=== PATIENT | female | born 1975 | race Caucasian/White ===

== ENCOUNTER 2017-01-12 10:07 | Emergency (ER) | payer MEDICAID ==
[~2017-01-12] VITALS: Ht 157.5 cm; Wt 65.5 kg
[2017-01-12 10:10] VITALS: Ht 157.5 cm; Wt 65.5 kg
[2017-01-12] MEDS ORDERED: IBUPROFEN 600 MG TAB PO ONE (12:00)
--- NOTE | 2017-01-12 12:41 | RADRPT ---
PROCEDURE: Right hand series CLINICAL INDICATION: Right hand and wrist pain TECHNIQUE: Three views of the right hand were obtained. COMPARISON: No prior studies are available for comparison. FINDINGS: There is normal mineralization and alignment of the bones of the right hand. There is no evidence o f acute fracture or dislocation. Joint spaces are well maintained. There is no evidence of osteoph yte formation or erosions. The soft tissues are within normal limits. IMPRESSION: 1. Unremarkable right hand series. RPTAT: KK .Jorge Bishop MD, MD Date Time Electronically viewed and signed by .Jorge Bishop MD, MD on 01/12/2017 12:40 .B/
--- NOTE | 2017-01-12 12:43 | RADRPT ---
PROCEDURE: XR Wrist. CLINICAL INDICATION: Right wrist pain TECHNIQUE: 4 views of the right wrist were performed. COMPARISON: No prior studies are available for comparison. FINDINGS: There is normal mineralization and alignment of the bones of the right wrist . there is a subtle li near hyperdensity just posterior to the mid carpal bones typically seen in a triquetral fracture. Th ere is no other evidence of acute fracture or dislocation. Joint spaces are well maintained. No ero sions or osteophytes are seen. The soft tissues are within normal limits. IMPRESSION: 1. Subtle linear hyperdensity just dorsal to the carpal bones typically seen in a triquetral fractu re. Given the subtlety of the finding, it may be artifactual, and can be confirmed with CT if clini aron indicated. Recommend correlation with point tenderness. 2. Otherwise unremarkable right wrist series. RPTAT: KK .Jorge Bishop MD, MD Date Time Electronically viewed and signed by .Jorge Bishop MD, on 01/12/2017 12:43 .B/
--- NOTE | 2017-01-12 14:19 | RADRPT ---
AMENDMENT: 01/12/2017 2:25:07 PM Canelo Mendez Md It is now realized that a right wrist study was already performed. Although no definite fracture of the distal radius is noted, the appearance on the forearm study is such that a fracture is not compl etely excluded, if there has been trauma to this region. If indicated, a CT study of the right wrist is suggested. PROCEDURE: Right forearm series CLINICAL INDICATION: Atraumatic pain. TECHNIQUE: 2 views. AP and lateral. COMPARISON: None FINDINGS: There is mild nonspecific slight bowing of the lateral cortex of the distal humerus. This may be conrado tomic. Old trauma is not excluded. There is no history of acute trauma. The ulna is unremarkable. The soft tissues are unremarkable. IMPRESSION: 1. Nonspecific mild bowing of the lateral cortex of the distal humerus as discussed above. Correlat ion suggested. Right wrist series could be obtained for further evaluation if clinically indicated. RPTAT: HGSG .Canelo Mendez MD, MD Date Time Electronically viewed and signed by .Canelo Mendez MD, on 01/12/2017 14:26 .G/
[2017-01-12] MEDS ORDERED: IBUP-1542 PO (15:08)
--- NOTE | 2017-01-12 15:21 | ERD ---
ER Documentation Chief Complaint Date/Time DATE: 01/12/17 TIME: 15:11 Chief Complaint RIGHT WRIST PAIN FROM A SLIPPED AND FALL HPI Patient is a 41-year-old female with no past medical history who presents emergency department for concerns of right wrist pain after slip and fall injury 2 days ago. Patient states she is walking the street when she fell. Patient reports catching her fall with her wrists. Patient reports FOOSH like injury. Patient denies any previous fractures. Patient denies any numbness, tingling. Patient denies any elbow pain or shoulder pain. Patient denies any fevers or chills. Patient is right-hand dominant. Patient denies any head injury, nausea, vomiting or LOC. ROS All systems reviewed and are negative except as per history of present illness. Medications Home Meds Active Scripts Ibuprofen* (Motrin*) 600 Mg Tab, 600 MG PO Q6, #30 TAB Prov:JAMIR SOMMER PA-C 01/12/17 Allergies Allergies: Coded Allergies: No Known Allergy (Unverified , 01/12/17) PMhx/Soc Medical and Surgical Hx: pt denies Medical Hx, pt denies Surgical Hx Hx Alcohol Use: No Hx Substance Use: No Hx Tobacco Use: No Smoking Status: Never smoker Physical Exam Vitals Vital Signs Date Time Temp Pulse Resp B/P Pulse Ox O2 Delivery O2 Flow Rate FiO2 01/12/17 10:10 98.5 73 18 118/70 98 Physical Exam GENERAL: Well-developed, well-nourished female. Appears in no acute distress. HEAD: Normocephalic, atraumatic. EYES: Pupils are equally reactive bilaterally. EOMs grossly intact. No conjunctival erythema. ENT: Moist mucous membranes. No uvula deviation. No kissing tonsils. NECK: Supple. No meningismus. Normal range of motion of the neck. LUNG: Clear to auscultation bilaterally. No rhonchi, wheezing, rales or coarse breath sounds. HEART: Regular rate and rhythm. No murmurs, rubs or gallops. EXTREMITIES: Equal pulses bilaterally. No peripheral clubbing, cyanosis or edema. No unilateral leg swelling. NEUROLOGIC: Alert and oriented. Moving all four extremities without any difficulty. Normal speech. Steady gait. SKIN: Normal color. Warm and dry. No rashes or lesions. RIGHT HAND: No obvious deformity, erythema, ecchymosis or swelling. Tender to patient of the distal forearm. Tender patient over the snuffbox. Nontender palpation of the proximal forearm, elbow, humerus, clavicle. Sensation intact to light touch. Neurovascularly intact. (Able to give thumbs up, make an ok sign , cross digits 2 and 3, thumb to pinky opposition. 2+ RP.) Results 24 hrs Current Medications Medications (Trade) Dose Ordered Sig/Keven Route PRN Reason Start Time Stop Time Status Last Admin Dose Admin Ibuprofen (Motrin) 600 mg ONCE ONCE PO 01/12/17 12:00 01/12/17 12:01 DC 01/12/17 11:39 Procedures/MDM ED COURSE: The patient was stable throughout ED course. I kept the patient and/or family informed of laboratory and diagnostic imaging results throughout the ED course. DIAGNOSTIC IMAGING: Read by radiologist. DIAGNOSTIC IMAGING REPORT Patient: SIMONA CHEN : 1975 Age: 41 Sex: F MR #: [id number] DOS: 01/12/17 1133 Ordering MD: JAMIR SOMMER PA-C Location: [facility] Room/Bed: PROCEDURE: XR Wrist. CLINICAL INDICATION: Right wrist pain TECHNIQUE: 4 views of the right wrist were performed. COMPARISON: No prior studies are available for comparison. FINDINGS: There is normal mineralization and alignment of the bones of the right wrist . there is a subtle linear hyperdensity just posterior to the mid carpal bones typically seen in a triquetral fracture. There is no other evidence of acute fracture or dislocation. Joint spaces are well maintained. No erosions or osteophytes are seen. The soft tissues are within normal limits. IMPRESSION: 1. Subtle linear hyperdensity just dorsal to the carpal bones typically seen in a triquetral fracture. Given the subtlety of the finding, it may be artifactual, and can be confirmed with CT if clinically indicated. Recommend correlation with point tenderness. 2. Otherwise unremarkable right wrist series. RPTAT: KK .Jorge Bishop MD, Date Time Electronically viewed and signed by .Jorge Bishop MD, MD on 2016 12:43 .B/ CC: JAMIR SOMMER PA-C Patient: SIMONA CHEN : 1975 Age: 41 Sex: F MR #: [id number] DOS: 01/12/17 1133 Ordering MD: JAMIR SOMMER PA-C Location: [facility] Room/Bed: PROCEDURE: Right hand series CLINICAL INDICATION: Right hand and wrist pain TECHNIQUE: Three views of the right hand were obtained. COMPARISON: No prior studies are available for comparison. FINDINGS: There is normal mineralization and alignment of the bones of the right hand. There is no evidence of acute fracture or dislocation. Joint spaces are well maintained. There is no evidence of osteophyte formation or erosions. The soft tissues are within normal limits. IMPRESSION: 1. Unremarkable right hand series. RPTAT: KK .Jorge Bishop MD, MD Date Time Electronically viewed and signed by .Jorge Bishop MD, MD on 2016 12:40 .B/ CC: JAMIR SOMMER PA-C Patient: SIMONA CHEN : 1975 Age: 41 Sex: F MR #: [id number] DOS: 01/12/17 1301 Ordering MD: JAMIR SOMMER PA-C Location: [facility] Room/Bed: AMENDMENT: 01/12/2017 2:25:07 PM Canelo Mendez Md It is now realized that a right wrist study was already performed. Although no definite fracture of the distal radius is noted, the appearance on the forearm study is such that a fracture is not completely excluded, if there has been trauma to this region. If indicated, a CT study of the right wrist is suggested. PROCEDURE: Right forearm series CLINICAL INDICATION: Atraumatic pain. TECHNIQUE: 2 views. AP and lateral. COMPARISON: None FINDINGS: There is mild nonspecific slight bowing of the lateral cortex of the distal humerus. This may be anatomic. Old trauma is not excluded. There is no history of acute trauma. The ulna is unremarkable. The soft tissues are unremarkable. IMPRESSION: 1. Nonspecific mild bowing of the lateral cortex of the distal humerus as discussed above. Correlation suggested. Right wrist series could be obtained for further evaluation if clinically indicated. RPTAT: HGSG .Canelo Mendez MD, MD Date Time Electronically viewed and signed by .Canelo Mendez MD, MD on 01/12/2017 14: 26 .G/ CC: JAMIR SOMMER PA-C SPLINT APPLICATION: The patient was verbally consented at bedside prior to splint application. Patient was explained the risks, benefits and alternatives to this procedure. The patient was neurovascularly intact prior to and status post application of the splint. The patient tolerated the procedure well with no complications. Splint type: volar splint and thumb spica splint Extremity: right arm Indication:possible triquetral fracture, scaphoid fracture MEDICATIONS GIVEN: Ibuprofen Patient tolerated medication well with no adverse reactions. Patient reported improvement in pain. MEDICAL DECISION MAKING: This is a 41-year-old female who presents with right wrist pain after a slip and fall injury 2 days ago. Vital signs were reviewed. Patient was afebrile. X -ray imaging of the right wrist showed 1. Subtle linear hyperdensity just dorsal to the carpal bones typically seen in a triquetral fracture. Given the subtlety of the finding, it may be artifactual, and can be confirmed with CT if clinically indicated. Recommend correlation with point tenderness. 2. Otherwise unremarkable right wrist series. Right hand series was unremarkable. Right forearm series showed Nonspecific mild bowing of the lateral cortex of the distal humerus as discussed above. Correlation suggested. Right wrist series could be obtained for further evaluation if clinically indicated. Given that patient did report tenderness to palpation over the snuffbox. Patient was placed in a thumb spica as well as a volar splint. Patient was advised that she will need to follow-up with electronic warfare specialist for further management of her fracture. Copy of all imaging studies obtained today were given to the patient. Patient was also placed in a sling for comfort measures. Given these findings, the patient's presentation was consistent with possible triquetral fracture and scaphoid fracture. Low suspicion for dislocation, metacarpal fracture, phalanx fracture, boxer's fracture, boutonnieres deformity, mallet finger, elbow fracture, avulsion injury, osteomyelitis or compartment syndrome. PRESCRIPTIONS: Ibuprofen DISCHARGE: At this time, patient is stable for discharge and outpatient management. Patient was advised to follow up with electronic warfare specialist, referral information provided. I have instructed the patient to follow-up with his/her primary care physician in 1-2 days. I have discussed with the patient the possibility of needing to see an electronic warfare specialist for further workup and imaging if the pain persists. I have instructed the patient to promptly return to the ER for any new or worsening symptoms including increased pain, swelling, redness, warmth or fever. The patient and/or family expressed understanding of and agreement with this plan. All questions were answered. Home care instructions were provided. Departure Diagnosis: Primary Impression: Triquetral fracture Encounter type: initial encounter Fracture type: closed Fracture alignment : nondisplaced Laterality: unspecified laterality Qualified Code: S62.116A - Closed nondisplaced fracture of triquetrum, unspecified laterality, initial encounter Additional Impression: Pain of right arm Condition: Stable Patient Instructions: Fracture, Wrist [General] Referrals: [facility] YOU HAVE RECEIVED A MEDICAL SCREENING EXAM AND THE RESULTS INDICATE THAT YOU DO NOT HAVE A CONDITION THAT REQUIRES URGENT TREATMENT IN THE EMERGENCY DEPARTMENT. FURTHER EVALUATION AND TREATMENT OF YOUR CONDITION CAN WAIT UNTIL YOU ARE SEEN IN YOUR DOCTORS OFFICE WITHIN THE NEXT 1-2 DAYS. IT IS YOUR RESPONSIBILITY TO MAKE AN APPOINTMENT FOR FOLOW-UP CARE. IF YOU HAVE A PRIMARY DOCTOR --you should call your primary doctor and schedule an appointment IF YOU DO NOT HAVE A PRIMARY DOCTOR YOU CAN CALL OUR PHYSICIAN REFERRAL HOTLINE AT IF YOU CAN NOT AFFORD TO SEE A PHYSICIAN YOU CAN CHOSE FROM THE FOLLOWING [facility] [address] [facility]. [facility] [address] [facility] [place] [facility] [address] [facility] [address] [facility] [address] [facility]. [facility]. [address] [facility]. [facility] YOU HAVE RECEIVED A MEDICAL SCREENING EXAM AND THE RESULTS INDICATE THAT YOU DO NOT HAVE A CONDITION THAT REQUIRES URGENT TREATMENT IN THE EMERGENCY DEPARTMENT. FURTHER EVALUATION AND TREATMENT OF YOUR CONDITION CAN WAIT UNTIL YOU ARE SEEN IN YOUR DOCTORS OFFICE WITHIN THE NEXT 1-2 DAYS. IT IS YOUR RESPONSIBILITY TO MAKE AN APPOINTMENT FOR FOLOW-UP CARE. IF YOU HAVE A PRIMARY DOCTOR --you should call your primary doctor and schedule and appointment IF YOU DO NOT HAVE A PRIMARY DOCTOR YOU CAN CALL OUR PHYSICIAN REFERRAL HOTLINE AT . IF YOU CAN NOT AFFORD TO SEE A PHYSICIAN YOU CAN CHOSE FROM THE FOLLOWING [facility] INSTITUTIONS: [facility] [address] [place] [address] [facility] [address] [place] [address] [facility] [address] [place] [address] [facility] Hours: Mon-Fri 9:00 AM - 5:00 PM Additional Instructions: Remain in splint until seen by electronic warfare specialist. Unable to rule out any ligament or tendon injuries. Patient advised to follow-up with the electronic warfare specialist for further management of her fracture. Call your primary care doctor TOMORROW for an appointment during the next 1-2 days.See the doctor sooner or return here if your condition worsens before your appointment time. JAMIR SOMMER PA-C Jan 12, 2017 15:21
== END 2017-01-12 15:19 | disposition home or self-care (01) ==
LOC: FTE 10:07
DX: S62.114A Nondisplaced fracture of triquetrum [cuneiform] bone, right wrist, initial encounter for closed fracture (principal); W01.0XXA Fall on same level from slipping, tripping and stumbling without subsequent striking against object, initial encounter; Y92.9 Unspecified place or not applicable
CPT/HCPCS: 29125; 73090; 73110; 73130; Z7502; Z7610